=== PATIENT | female | born 1985 | race Caucasian/White ===

== ENCOUNTER 2019-03-09 03:47 | Emergency (ER) | payer OTHER, SELFPAY ==
--- OUTSIDE RECORDS SUMMARY | 2019-03-09 03:49 | XMS REPORT ---
:1985 Author Organization [facility] Address [address] [place] [address] Dr. Rushing. [address] [place] [id number] Care Team Providers Name Role Phone Unavailable Unavailable Unavailable Problems This patient has no known problems. Allergies, Adverse Reactions, Alerts This patient has no known allergies or adverse reactions. Medications This patient has no known medications.
--- NOTE | 2019-03-09 04:41 | EDPHYS ---
Physician Documentation [facility] Name: Johanny Rivera Age: 33 yrs Sex: Female : 1985 Arrival Date: 03/09/2019 Time: 03:51 Bed 20 Private MD: ED Physician Carlos Art HPI: 03/09 04:33 This 33 yrs old Female presents to ER via Ambulatory with complaints of Rash. tw4 04:33 The patient's rash thought to be caused by allergies. The rash is located on the body tw4 diffusely. The rash can be described as urticarial. Onset: The symptoms/episode began/occurred 1 week(s) ago. Associated signs and symptoms: Pertinent positives: None. Severity of symptoms: At their worst the symptoms were moderate in the emergency department the symptoms are unchanged. The patient has not experienced similar symptoms in the past. 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 - Social history:: Smoking status: Patient uses tobacco products, vapes, Patient uses alcohol, occasionally. - Ebola Screening: : No symptoms or risks identified at this time. ROS: 04:33 Constitutional: Negative for fever, chills, and weight loss, Eyes: Negative for injury, tw4 pain, redness, and discharge, Cardiovascular: Negative for chest pain, palpitations, and edema, Respiratory: Negative for shortness of breath, cough, wheezing, and pleuritic chest pain, Abdomen/GI: Negative for abdominal pain, nausea, vomiting, diarrhea, and constipation, Back: Negative for injury and pain, MS/Extremity: Negative for injury and deformity, Neuro: Negative for headache, weakness, numbness, tingling, and seizure, Psych: Negative for depression, anxiety, suicide ideation, homicidal ideation, and hallucinations. 04:33 Skin: Positive for rash, diffusely. Exam: 04:33 Constitutional: This is a well developed, well nourished patient who is awake, alert, tw4 and in no acute distress. Head/Face: Normocephalic, atraumatic. Chest/axilla: Normal chest wall appearance and motion. Nontender with no deformity. No lesions are appreciated. Cardiovascular: Regular rate and rhythm with a normal S1 and S2. No gallops, murmurs, or rubs. Normal PMI, no JVD. No pulse deficits. Respiratory: Lungs have equal breath sounds bilaterally, clear to auscultation and percussion. No rales, rhonchi or wheezes noted. No increased work of breathing, no retractions or nasal flaring. Abdomen/GI: Soft, non-tender, with normal bowel sounds. No distension or tympany. No guarding or rebound. No evidence of tenderness throughout. MS/ Extremity: Pulses equal, no cyanosis. Neurovascular intact. Full, normal range of motion. Neuro: Awake and alert, GCS 15, oriented to person, place, time, and situation. Cranial nerves II-XII grossly intact. Motor strength 5/5 in all extremities. Sensory grossly intact. Cerebellar exam normal. Normal gait. 04:33 Skin: urticaria. Vital Signs: 04:07 BP 132 / 79; Pulse 82; Resp 16 S; Temp 97.9(O); Pulse Ox 97% on R/A; Weight 112.94 kg bb (M); Height 5 ft. 1 in. (154.94 cm) (R); Pain 7/10; 06:21 BP 110 / 73; Pulse 62; Resp 16; Pulse Ox 99% on R/A; mt 06:32 Pain 0/10; jd3 07:00 BP 111 / 69; Pulse 70; Resp 16; Pulse Ox 97% ; bp 08:53 BP 113 / 65; Pulse 65; Resp 16; Pulse Ox 98% ; bp 04:07 Body Mass Index 47.05 (112.94 kg, 154.94 cm) bb MDM: 04:00 Patient medically screened. tw4 04:33 Differential diagnosis: impetigo, allergic reaction. Data reviewed: vital signs, nurses tw4 notes. Data interpreted: Pulse oximetry: Interpretation: normal. Counseling: I had a detailed discussion with the patient and/or guardian regarding: the historical points, exam findings, and any diagnostic results supporting the discharge/admit diagnosis. Medication response: SOLU-MEDROL BENDARYL. Special discussion: I discussed with the patient/guardian in detail that at this point there is no indication for admission to the hospital. It is understood, however, that if the symptoms persist or worsen the patient needs to return immediately for re-evaluation. 07:46 Patient medically screened. [facility] 03/09 05:43 Order name: Basic Metabolic Panel; Complete Time: 07:08 [facility] 03/09 07:08 Interpretation: Normal except: CL 112. [facility] 03/09 05:43 Order name: CBC with Diff; Complete Time: 07:08 [facility] 03/09 07:09 Interpretation: Normal except: WBC 11.1; HGB 11.5; HCT 35.2. [facility] 03/09 05:43 Order name: Creatinine for Radiology; Complete Time: 07:47 [facility] 03/09 05:43 Order name: Hepatic Function; Complete Time: 07:08 [facility] 03/09 07:08 Interpretation: Normal except: AST 11; ALB 3.0; A/G 0.9. [facility] 03/09 05:43 Order name: Lipase; Complete Time: 07:09 [facility] 03/09 07:09 Interpretation: Within normal limits: LIP 134. [facility] 03/09 07:24 Order name: Urine Dipstick--Ancillary (enter results) 03/09 04:11 Order name: IV Saline Lock; Complete Time: 04:42 [facility] 03/09 05:43 Order name: CT Abd/Pelvis - W/Contrast [facility] 03/09 07:24 Order name: Urine --Ancillary (enter results) 03/09 05:43 Order name: IV Saline Lock; Complete Time: 05:52 [facility] 03/09 05:43 Order name: Labs collected and sent; Complete Time: 05:52 [facility] 03/09 06:57 Order name: Urine Test (obtain specimen); Complete Time: 07:27 jd3 Administered Medications: 04:53 Drug: Benadryl 25 mg Route: IVP; Site: left antecubital; jd3 05:50 Follow up: Response: No adverse reaction jd3 04:53 Drug: GI Cocktail without - (Maalox Suspension 30 ml, Lidocaine Liquid 2 % 15 jd3 ml) Route: PO; 05:50 Follow up: Response: No adverse reaction jd3 04:54 Drug: SOLU-Medrol 125 mg Route: IVP; Site: left antecubital; jd3 05:50 Follow up: Response: No adverse reaction jd3 04:54 Drug: Pepcid 20 mg Route: IVP; Site: left antecubital; jd3 05:50 Follow up: Response: No adverse reaction jd3 06:00 Drug: TORadol 30 mg Route: IVP; Site: left antecubital; jd3 06:32 Follow up: Pain 0/10 Adult; Response: No adverse reaction; Pain is decreased jd3 Disposition: 03/09/19 04:41 Discharged to Home. Impression: ALLERGIC REACTION, Gastritis, unspecified. - Condition is Stable. - Discharge Instructions: Allergies, Adult, Gastritis, Adult, [id number]. - Prescriptions for Protonix 40 mg Oral Tablet - take 1 tablet by ORAL route once daily; 30 tablet. Medrol (René) 4 mg Oral Tablets, Dose Pack - take 1 tablet by ORAL route as directed - follow package instructions; 1 packet. - Medication Reconciliation Form, Thank You Letter, Antibiotic Education, Prescription Opioid Use form. - Follow up: Private Physician; When: Upon discharge from the Emergency Department; Reason: If symptoms return, Recheck today's complaints, Continuance of care. - Problem is new. - Symptoms have improved. Signatures: Dispatcher [employer] EDMS Carlos Art MD MD cha Ballard, Brenda RN RN Mari Briones RN RN tl2 Billy Cho RN RN jCuauhtemoc Colindres RN RN bp Wadley, Terrence, MD MD tw4 Corrections: (The following items were deleted from the chart) 08:57 04:41 03/09/2019 04:41 Discharged to Home. Impression: ALLERGIC REACTION; Gastritis, bp unspecified. Condition is Stable. Forms are Medication Reconciliation Form, Thank You Letter, Antibiotic Education, Prescription Opioid Use. Follow up: Private Physician; When: Upon discharge from the Emergency Department; Reason: If symptoms return, Recheck today's complaints, Continuance of care. Problem is new. Symptoms have improved. tw4
--- NOTE | 2019-03-09 04:41 | ER ---
Nurse's Notes [facility] Name: Johanny Rivera Age: 33 yrs Sex: Female : 1985 Arrival Date: 03/09/2019 Time: 03:51 Bed 20 Private MD: Diagnosis: ALLERGIC REACTION;Gastritis, unspecified Presentation: 03/09 04:02 Presenting complaint: Patient states: she broke out with an allergic reaction last bb Friday with a rash she went to Urgent Care and was given a shot and some pills and it got better but yesterday it came back again she has taken multiple Benadryls with no relief and she is reporting feeling like her throat is swelling and epigastric pain. Denies vomiting or diarrhea. Transition of care: patient was not received from another setting of care. Onset of symptoms was March 01, 2019. Risk Assessment: Do you want to hurt yourself or someone else? Patient reports no desire to harm self or others. Initial Sepsis Screen: Does the patient meet any 2 criteria? No. Patient's initial sepsis screen is negative. Does the patient have a suspected source of infection? No. Patient's initial sepsis screen is negative. Care prior to arrival: None. 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 - Social history:: Smoking status: Patient uses tobacco products, vapes, Patient uses alcohol, occasionally. - Ebola Screening: : No symptoms or risks identified at this time. Screenin:00 Abuse screen: Denies threats or abuse. Denies injuries from another. Nutritional bp screening: No deficits noted. Tuberculosis screening: No symptoms or risk factors identified. Fall Risk None identified. Assessment: 04:15 General: Appears in no apparent distress. uncomfortable, Behavior is calm, cooperative, jd3 appropriate for age. Pain: Complains of pain in abdomen. Neuro: Level of Consciousness is awake, alert, obeys commands, Oriented to person, place, time, situation, Appropriate for age. Cardiovascular: Heart tones S1 S2 present Capillary refill < 3 seconds Patient's skin is warm and dry. Respiratory: Reports lump in throat feeling. Airway is patent Respiratory effort is even, unlabored, Respiratory pattern is regular, symmetrical, Breath sounds are clear bilaterally. GI: Abdomen is round non-distended, Reports lower abdominal pain, upper abdominal pain. : No signs and/or symptoms were reported regarding the genitourinary system. EENT: No signs and/or symptoms were reported regarding the EENT system. Derm: Skin is intact, Skin is dry, Skin is normal, Skin temperature is warm Rash noted that is itchy, red, raised, urticaria, on chest, pelvis and neck. Musculoskeletal: Circulation, motion, and sensation intact. Range of motion: intact in all extremities. 05:30 Reassessment: Patient appears in no apparent distress at this time. No changes from j previously documented assessment. Patient and/or family updated on plan of care and expected duration. Pain level reassessed. Patient is alert, oriented x 3, equal unlabored respirations, skin warm/dry/pink. 06:32 Reassessment: Patient appears in no apparent distress at this time. Patient and/or jd3 family updated on plan of care and expected duration. Pain level reassessed. Patient is alert, oriented x 3, equal unlabored respirations, skin warm/dry/pink. Patient denies pain at this time. 07:00 Reassessment: RECD REPORT FROM HARRY KNIGHT. 33YO WF P/W RASH AND ABD PAIN. CT PENDING. bp NO APPARENT DISTRESS AT THIS TIME. 07:25 Reassessment: PT TO CT WITH FURNACE COOLER. bp 08:51 Reassessment: PT D/C HOME AMBULATORY, DX WITH GASTRITIS AND ALLERGIC REACTION. bp Vital Signs: 04:07 BP 132 / 79; Pulse 82; Resp 16 S; Temp 97.9(O); Pulse Ox 97% on R/A; Weight 112.94 kg bb (M); Height 5 ft. 1 in. (154.94 cm) (R); Pain 7/10; 06:21 BP 110 / 73; Pulse 62; Resp 16; Pulse Ox 99% on R/A; mt 06:32 Pain 0/10; jd3 07:00 BP 111 / 69; Pulse 70; Resp 16; Pulse Ox 97% ; bp 08:53 BP 113 / 65; Pulse 65; Resp 16; Pulse Ox 98% ; bp 04:07 Body Mass Index 47.05 (112.94 kg, 154.94 cm) bb ED Course: 03:51 Patient arrived in ED. es 03:59 Kee Mendoza MD is Attending Physician. tw4 04:06 Triage completed. bb 04:07 Arm band placed on Patient placed in an exam room, on a stretcher, on pulse oximetry. bb 04:15 Missed attempt(s): 20 gauge in right antecubital area. Bleeding controlled, band aid jd3 applied, catheter tip intact. 04:26 Missed attempt(s): 22 gauge in left hand. mt 04:53 Billy Cho, ANTONIA is Primary Nurse. jd3 05:30 Inserted saline lock: 20 gauge in left antecubital area, using aseptic technique. jd3 placed by Carrie Florez. 06:49 Radiology exam delayed due to test not completed at this time. kw1 07:00 Patient has correct armband on for positive identification. Placed in gown. Bed in low bp position. Call light in reach. Side rails up X2. 07:30 CT completed. Patient tolerated procedure well. Patient moved to CT via wheelchair. jg6 07:37 CT Abd/Pelvis - W/Contrast In Process Unspecified. EDMS 07:46 Attending Physician role handed off by Kee Mendoza MD jovi 07:46 Carlos Art MD is Attending Physician. jovi 08:52 No provider procedures requiring assistance completed. IV discontinued, intact, bp bleeding controlled, No redness/swelling at site. Pressure dressing applied. Administered Medications: 04:53 Drug: Benadryl 25 mg Route: IVP; Site: left antecubital; jd3 05:50 Follow up: Response: No adverse reaction jd3 04:53 Drug: GI Cocktail without - (Maalox Suspension 30 ml, Lidocaine Liquid 2 % 15 jd3 ml) Route: PO; 05:50 Follow up: Response: No adverse reaction jd3 04:54 Drug: SOLU-Medrol 125 mg Route: IVP; Site: left antecubital; jd3 05:50 Follow up: Response: No adverse reaction jd3 04:54 Drug: Pepcid 20 mg Route: IVP; Site: left antecubital; jd3 05:50 Follow up: Response: No adverse reaction jd3 06:00 Drug: TORadol 30 mg Route: IVP; Site: left antecubital; jd3 06:32 Follow up: Pain 0/10 Adult; Response: No adverse reaction; Pain is decreased jd3 Outcome: 04:41 Discharge ordered by MD. cunha 08:52 Discharged to home ambulatory. bp 08:52 Condition: stable 08:52 Discharge instructions given to patient, Instructed on discharge instructions, follow up and referral plans. medication usage, Demonstrated understanding of instructions, follow-up care, medications, Prescriptions given X 2. 08:57 Patient left the ED. bp Signatures: Dispatcher [employer] EDCarlos Gracia MD MD cha Salyer, Carrie Bhakta, RN RN Kiah Shannon mt, Jonathon, RN RN jd3 Peltier, Brian, RN RN bp Wilhelm, Kimberly kw Kee Mendoza MD MD twGabby Hunter j6
[2019-03-09] MEDS ORDERED: FAMOTIDINE 20 MG/2 ML VIAL IV ONE (04:57)
[2019-03-09] MEDS ORDERED: DIPHENHYDRAMINE 50 MG/ML VIAL ONE (04:57)
[2019-03-09] MEDS ORDERED: MAGNE/ALUM HYDROXD 30 ML UCUP ONE (04:57)
[2019-03-09] MEDS ORDERED: METHYLPREDNISOLONE 125 MG INJ ONE (04:57)
[2019-03-09] MEDS ORDERED: LIDOCAINE VISCOUS 2% SOLN 15 ML UDC ONE (04:57)
[2019-03-09 05:58] LABS: Absolute Monocytes 0.6 K/uL (0.1-1.3); Absolute Neutrophil 7.5 K/uL (1.8-8.0); Basophils % 0.5 % (0-1.3); Eosinophils % 0.7 % (0-4.4); Hematocrit 35.2 % (36.0-45.0); Lymphocytes % 26.6 % (15.3-44.8); MPV 8.2 fL (7.6-11.3); Monocytes % 5.1 % (3.3-12.3); RBC Red Blood Cell Count 4.12 M/uL (3.86-4.86)
[2019-03-09] MEDS ORDERED: KETOROLAC 30 MG/ML INJ ONE (06:10)
[2019-03-09 06:13] LABS: ALT/SGPT 29 U/L (12-78); AST/SGOT 11 U/L (15-37); Alkaline Phosphatase 62 U/L (45-117); BUN Blood Urea Nitrogen 18 mg/dL (7-18); Bicarbonate 25 mmol/L (21-32); Bilirubin Direct < 0.1 mg/dL (0-0.2); Bilirubin Total 0.2 mg/dL (0.2-1.0); Glucose Level 95 mg/dL (74-106); Lipase 134 U/L (73-393); Potassium 3.6 mmol/L (3.5-5.1); Protein, Total 6.4 g/dL (6.4-8.2); Sodium Level 142 mmol/L (136-145)
--- NOTE | 2019-03-09 08:14 | RAD REPORT ---
EXAM DESCRIPTION: CT - Abdomen Pelvis W Contrast - 03/09/2019 7:36 am CLINICAL HISTORY: Abdominal pain with nausea. COMPARISON: none. TECHNIQUE: Computed axial tomography of the abdomen pelvis was obtained. 100 cc Isovue-300 was admin istered intravenously. Oral contrast was not requested which limits evaluation of bowel. All CT scans are performed using dose optimization technique as appropriate and may include automated exposure control or mA/KV adjustment according to patient size. FINDINGS: The liver, spleen, pancreas, adrenal and kidneys appear unremarkable. There is no evidence of diverticulitis. Normal appendix. Cholecystectomy Tiny umbilical hernia. 23 millimeter right ovarian cyst. A 17 millimeter left ovarian follicle. No si gnificant free fluid IMPRESSION: 23 millimeter right ovarian cyst without significant free fluid
[2019-03-09 08:28] LABS: Urine Blood NEGATIVE (NEG); Urine Glucose NEGATIVE (NEG); Urine Protein NEGATIVE (NEG); Urine Specific Gravity 1.025 (1.005-1.030); Urine pH 5.5 (5.0-7.0)
== END 2019-03-09 08:57 | disposition home or self-care (01) ==
LOC: ER 03:47
DX: K29.70 Gastritis, unspecified, without bleeding (principal); E03.9 Hypothyroidism, unspecified; Z72.0 Tobacco use; Z88.8 Allergy status to other drugs, medicaments and biological substances; Z91.02 Food additives allergy status; Z91.048 Other nonmedicinal substance allergy status
CPT/HCPCS: 36415; 74177; 80048; 80076; 81003; 81025; 83690; 85025; 96374; 96375; 99284; J2930; Q9967